=== PATIENT | male | born 1990 | race African-American/Black ===

== ENCOUNTER 2025-03-17 01:48 | Emergency (ER) | payer OTHER, SELFPAY ==
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
[2025-03-17 01:49] VITALS: BP 129/84; PULSE 90; RESP 13; TEMP 36.8; O2SAT 100
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
--- NOTE | 2025-03-17 01:57 | PC.NURSE ---
EDP made aware of pts [place] scale questions
[2025-03-17] MEDS: KETOROLAC 30 MG/ML VIAL (*BKC) IM (02:13)
[2025-03-17] MEDS: oxyCODONE HCL (*CRX) 5 MG TAB IR PO (02:13)
[2025-03-17 04:35] VITALS: BP 125/81; PULSE 98; RESP 17; O2SAT 100
[2025-03-17 04:37] VITALS: BP 125/81; PULSE 98; RESP 17; TEMP 36.6; O2SAT 100
== END 2025-03-17 04:40 | disposition home or self-care (01) ==
PROVIDERS: Emergency Provider Student in an Organized Health Care Education/Training Program
DX: M79.662 Pain in left lower leg (principal); V03.90XA Pedestrian on foot injured in collision with car, pick-up truck or van, unspecified whether traffic or nontraffic accident, initial encounter
CPT/HCPCS: 73562; 73590; 73600; 96372; 99284; A9270; J1885